=== PATIENT | female | born 1945 | race Caucasian/White ===

== ENCOUNTER → 2017-05-29 | Outpatient (CLI) | payer MEDICARE ==
[~2017-05-29] MED LIST: ADV250/50 INH; ALBU8.5H IH; ASCO-504 PO; ASPI-1471 PO; AZIT-17 PO; BLOO-1318 MC; CHOL10005 PO; COD1CAPS40 PO; FLU44R INH; FLUT1DIS28 IH; GLIM4TAB49 PO; GLIM4TAB50 PO; GUALA600 PO; HYDR-2966 PO; LEV500 PO; LEVI SUBQ; LEVO25TA61 PO; LISI-347 PO; LISI-353 PO; LISI-355 PO; LISI-362 PO; LORA-629 PO; METF-410 PO; METF-420 PO; METXR500 PO; MONT10TA4 PO; MULT-27 PO; NPH,100V12 SQ; NPH,100V2 SUBQ; PNEI IM; PNEU0.5D3 IM; PRA20 PO; PRE20 PO; RANI150C17 PO; SIMV-54 PO; SYRI-1525 MC; TIO18R INH; ZOST19404 SQ
--- NOTE | 2017-05-29 14:39 | RADIOLOGY IMAGING REPORT ---
FACILITY: [facility] PATIENT NAME: Alona Ku : 1945 MR: [id number] V: [id number] EXAM DATE: ORDERING PHYSICIAN: ADEN GONZALEZ TECHNOLOGIST: Location: [facility] Patient: Alona Ku : 1945 Visit/Account:[id number] Date of Sevice: 05/29/2017 DEXA Scan Clinical history: Postmenopausal state. Comparison: None available. LUMBAR SPINE: The bone mineral density (BMD) measured from L1-L4 correlates with a Z-score 1.1 and a T-score of 0.6 which is Normal as defined by the World Health Organization. The corresponding risk of fracture in the lumbar spine is Not increased compared with a young adult reference population. HIP: Bone mineral density (BMD) measured in the Left total hip region correlates with a Z-score by 0.4 and a T-score of -1.1 which is osteopenia as defined by the World Health Organization. The correspondin g risk of fracture in the hip is 2-3 times increased compared with a young adult reference population . T score left femoral neck -1.7 Bone mineral density (BMD) measured in the Femoral Neck region measures 0.803 g/cm2. Impression: 1. Lumbar spine: Normal. 2. Left Hip: Osteopenia. 3. Femoral Neck: Bone Mineral Density is 0.803 g/cm2 The next DEXA scan of this patient should include the following sites: L1-L4 and the left hip. FRAX? WHO Fracture Risk Assessment Tool link: <http://www.shef.ac.uk/FRAX/tool.jsp?locationValue=9> PLEASE NOTE: 1) The World Health Organization defines low BMD as follows: T-score Normal > -1 Osteopenia < -1 and > -2.5 Osteoporosis < -2.5 without fractures Established osteoporosis < -2.5 with fractures 2) In general, you may wish to consider: Diagnosis Treatment Follow-up DEXA Normal BMD Prevention 2-3 years Osteopenia Prevention/therapy 1-2 years Osteoporosis Therapy Yearly 3) Fracture risk estimated from the T-score is more accurate for vertebral fractures (often spontane ous) than for hip fractures. Report Dictated By: Antonia Parnell MD at 05/29/2017 2:31 PM Report E-Signed By: Antonia Parnell MD at 05/29/2017 2:35 PM IVYN:MELANY
== END ==
LOC: RAD 04:04
PROVIDERS: ATTEND Nurse Practitioner Family
DX: Z13.820 Encounter for screening for osteoporosis (principal); M85.88 Other specified disorders of bone density and structure, other site; Z78.0 Asymptomatic menopausal state
CPT/HCPCS: 77080

== ENCOUNTER → 2017-08-05 | Outpatient (CLI) | payer MEDICARE ==
[~2017-08-05] MED LIST changes: -METF-410 PO; +METF-411 PO; -METF-420 PO; +METF-421 PO
[2017-08-05 11:31] LABS: PLATELET COUNT, AUTOMATED 316 K/uL (150-450)
== END ==
LOC: LAB 11:09
PROVIDERS: ATTEND Internal Medicine Nephrology
DX: Z13.9 Encounter for screening, unspecified (principal); I12.9 Hypertensive chronic kidney disease with stage 1 through stage 4 chronic kidney disease, or unspecified chronic kidney disease; N18.3 Chronic kidney disease, stage 3 (moderate); E78.5 Hyperlipidemia, unspecified
CPT/HCPCS: 36415; 82040; 82043; 82310; 82374; 82435; 82550; 82565; 82570; 82947; 83970; 84100; 84132; 84156; 84295; 84520; 85025

== ENCOUNTER → 2017-08-07 | Outpatient (CLI) | payer MEDICARE ==
--- NOTE | 2017-08-07 14:46 | RADIOLOGY IMAGING REPORT ---
FACILITY: [facility] PATIENT NAME: Alona Ku : 1945 MR: [id number] V: [id number] EXAM DATE: ORDERING PHYSICIAN: HUSSEIN CLARK TECHNOLOGIST: Location: [facility] Patient: Alona Ku : 1945 Visit/Account:[id number] Date of Sevice: 08/07/2017 KIDNEYS HISTORY: Chronic kidney disease. COMPARISON: None. FINDINGS: Kidneys: Right kidney- 10.6 x 5.0 x 5.0 cm with normal parenchymal thickness and echogenicity. There are 2 sm all cortical cysts measuring up to 2.8 cm. Left kidney- 10.8 x 5.2 x 4.5 cm with normal parenchymal thickness and echogenicity. Uniform and symmetric blood flow in each kidney by Doppler ultrasound. Hydronephrosis: None. Bladder: Unremarkable. Abdominal aorta and IVC: Patent by Doppler ultrasound. IMPRESSION: Small right-sided renal cysts. Otherwise unremarkable appearance of the kidneys and bladder. Report Dictated By: Manjeet Fournier MD at 08/07/2017 2:41 PM Report E-Signed By: Manjeet Fournier MD at 08/07/2017 2:42 PM WSN:[email or web address]
== END ==
LOC: US 01:28
PROVIDERS: ATTEND Internal Medicine Nephrology
DX: N28.1 Cyst of kidney, acquired (principal)
CPT/HCPCS: 76705

== ENCOUNTER → 2017-10-21 | Outpatient (CLI) | payer MEDICARE | LOC: LAB 11:24 | PROVIDERS: ATTEND Internal Medicine Nephrology | DX: I12.9 Hypertensive chronic kidney disease with stage 1 through stage 4 chronic kidney disease, or unspecified chronic kidney disease (principal); N18.3 Chronic kidney disease, stage 3 (moderate); E11.9 Type 2 diabetes mellitus without complications; E87.5 Hyperkalemia | CPT/HCPCS: 36415; 82040; 82247; 82310; 82374; 82435; 82565; 82784; 82947; 83883; 84075; 84132; 84155; 84156; 84165; 84295; 84450; 84460; 84520; 86334; 86335 ==

== ENCOUNTER → 2017-12-03 | Outpatient (CLI) | payer MEDICARE ==
[~2017-12-03] MED LIST changes: -METF-411 PO; -METF-421 PO; +METF-450 PO; +METF-452 PO
== END ==
LOC: LAB 14:41
PROVIDERS: ATTEND Nurse Practitioner Family
DX: E87.5 Hyperkalemia (principal)
CPT/HCPCS: 36415; 84132

== ENCOUNTER → 2018-04-21 | Outpatient (CLI) | payer MEDICARE | LOC: LAB 11:29 | PROVIDERS: ATTEND Internal Medicine Nephrology | DX: I12.9 Hypertensive chronic kidney disease with stage 1 through stage 4 chronic kidney disease, or unspecified chronic kidney disease (principal); N18.3 Chronic kidney disease, stage 3 (moderate); E87.5 Hyperkalemia; E11.9 Type 2 diabetes mellitus without complications | CPT/HCPCS: 36415; 81001; 82040; 82043; 82310; 82374; 82435; 82565; 82947; 84100; 84132; 84295; 84520; 87088 ==